=== PATIENT | male | born 1955 | race Caucasian/White ===

== ENCOUNTER 2018-06-11 04:52 | Emergency (ER) | END 2018-06-11 08:00 | disposition home or self-care (01) ==

== ENCOUNTER 2019-02-22 10:11 | Day surgery (SDC) | payer OTHER ==
[~2019-02-22] VITALS: Ht 165.1 cm; Wt 99.5 kg
[~2019-02-22 10:11] MED LIST: NAPR-985 PO
[2019-02-22] MEDS ORDERED: BP MEDICATION (10:57)
[2019-02-22 11:04] VITALS: Ht 165.1 cm; Wt 99.5 kg
[2019-02-22] MEDS ORDERED: LISINOPRIL (11:15)
[2019-02-22 11:32] VITALS: BP 126/69; PULSE 56; RESP 16
--- NOTE | 2019-02-22 11:33 | PREAC ---
Date/Time of Note Date/Time of Note DATE: 02/22/19 TIME: 11:32 Anesthesia Eval and Record Evaluation Time Pre-Procedure Interview DATE: 02/22/19 TIME: 11:32 Age 64 Sex male NPO: 8 hrs Preoperative diagnosis reflux esophagitis, screening Planned procedure EGD, colonoscopy Past Medical History Past Medical History: Includes Cardio: HTN GI: GERD, Obesity Surgery & Anesthesia Issues No known issue Meds Anticoagulation: No Beta Cuco within 24 hr: No Reason Beta Cuco not given: Pt. not on B-Cuco Reported Medications [Lisinopril] No Conflict Check 02/22/19 Discontinued Reported Medications [Bp Medication] No Conflict Check 02/22/19 Discontinued Scripts Naproxen* (Naprosyn*) 500 Mg Tablet, 500 MG PO BID PRN for PAIN AND/OR INFLAMMATION, #30 TAB Prov:ORTEGA WEST PA-C 06/11/18 Meds reviewed: Yes Allergies Coded Allergies: No Known Allergy (Unverified , 02/22/19) Allergies Reviewed: Yes Labs/Studies Labs Reviewed: Reviewed by anesthesiologist test: N/A Pre-procedure Exam Airway: Adequate mouth opening, Adequate thyromental dist Mallampati: Mallampati II Teeth: Normal Lung: Normal Heart: Normal ASA Physical Status ASA physical status: 2 Emergency: None Planned Anesthetic General/MAC: Mask Planned Pain Management Parenteral pain med Pre-operative Attestations Prior to commencing anesthesia and surgery, the patient was re-evaluated, there was verification of: *The patient's identity *The results of appropriate recent lab work and preoperative vital signs *The above evaluation not changing prior to induction *Anesthetic plan, risk benefits, alternative and complications discussed with patient/family; questions answered; patient/family understands, accepts and wishes to proceed. Continuous Improvement Lead used JUSTICE CAMARILLO MD Feb 22, 2019 11:33
[2019-02-22] MEDS ORDERED: ONDANSETRON 4 MG INJ IV PRN (12:00)
[2019-02-22] MEDS ORDERED: PROPOFOL 60 ML ONE (12:54)
[2019-02-22] MEDS ORDERED: LIDOCAINE 2% (SDV) 5 ML INJ ONE (12:54)
--- NOTE | 2019-02-22 13:05 | PAC ---
Date/Time of Note Date/Time of Note DATE: 02/22/19 TIME: 13:05 Post-Anesthesia Notes Post-Anesthesia Note Last documented vital signs Vital Signs Date Temp Pulse Resp B/P (MAP) Pulse Ox O2 O2 Flow FiO2 Time Delivery Rate 02/22/19 97.4 56 16 126/69 96 Room Air 11:32 (88) Activity: WNL Respiratory function: WNL Cardiovascular function: WNL Mental status: Baseline Pain reasonably controlled: Yes Hydration appropriate: Yes Nausea/Vomiting absent: Yes Comments BP: 129/88 HR 60 RR: 15 T:98 SaO2: 98% JUSTICE CAMARILLO MD Feb 22, 2019 13:05
[2019-02-22 13:27] VITALS: BP 121/52; RESP 20
== END 2019-02-22 15:31 | disposition home or self-care (01) ==
LOC: GIL 10:11
PROVIDERS: ATTEND Internal Medicine Gastroenterology
DX: Z12.11 Encounter for screening for malignant neoplasm of colon (principal); D12.5 Benign neoplasm of sigmoid colon; K29.50 Unspecified chronic gastritis without bleeding; K64.8 Other hemorrhoids; I10 Essential (primary) hypertension
CPT/HCPCS: 43239; 45385; 88305; 88312; Z7610